=== PATIENT | female | born 1955 | race Caucasian/White ===

== ENCOUNTER 2017-12-14 00:12 | Emergency (ER) | payer OTHER ==
[~2017-12-14] VITALS: Ht 160 cm; Wt 97.5 kg
[2017-12-14 01:21] LABS: APPEARANCE CLEAR ((CLEAR)); BILIRUBIN NEGATIVE; BLOOD SMALL; COLOR YELLOW ((YELLOW)); GLUCOSE (STRIP) NEGATIVE; KETONES NEGATIVE; LEUKOCYTES NEGATIVE; NITRITE NEGATIVE; PROTEIN (STRIP) NEGATIVE; SPECIFIC GRAVITY 1.012 (1.000-1.030); UROBILINOGEN 0.2 MG/DL (0.2-1.0)
[2017-12-14 01:24] LABS: BACTERIA RARE /HPF; EPITHELIAL CELLS RARE /HPF; MUCUS TRACE /LPF; UCUL ADDED? NO; WHITE BLOOD CELLS 0-5 /HPF (0-5)
[2017-12-14 01:27] LABS: BASOPHIL (%) 0.3 % (0-1); EOSINOPHIL (%) 1.9 % (0-5); EOSINOPHIL COUNT 0.2 K/uL (0-0.3); HEMATOCRIT 37.1 % (36.0-46.0); HEMOGLOBIN 12.9 G/DL (11.9-15.5); IMMATURE GRANULOCYTE (%) 0.2 % (0.0-0.7); LYMPHOCYTE (%) 18.1 % (15-42); LYMPHOCYTE COUNT 1.6 K/uL (1.0-2.8); MCH 32.5 PG (29.0-34.0); MCHC 34.8 G/DL (30.0-36.0); MCV 93.5 FL (83-99); MONOCYTE COUNT 0.7 K/uL (0-0.8); NEUTROPHIL (%) 71.5 % (45-76); NEUTROPHIL COUNT 6.2 K/uL (1.8-6.4); PLATELET COUNT 192 K/uL (156-360); RBC DIS.WIDTH-CV 12.4 % (11.8-14.6); RBC DIS.WIDTH-SD 42.4 % (39-53); RED BLOOD COUNT 3.97 M/uL (3.80-5.20); WHITE BLOOD COUNT 8.6 K/uL (4.1-10.2)
[2017-12-14 01:35] LABS: ALBUMIN 4.1 g/dL (3.2-4.8)
[2017-12-14 01:36] LABS: CHLORIDE 108 mEq/L (99-109); POTASSIUM 3.7 mEq/L (3.7-5.4); SODIUM 142 mEq/L (136-147)
[2017-12-14 01:38] LABS: GLUCOSE 100 mg/dL (70-99); TOTAL PROTEIN 7.5 g/dL (6.4-8.3)
[2017-12-14 01:40] LABS: TOTAL BILIRUBIN 0.6 mg/dL (0.0-1.0)
[2017-12-14 01:41] LABS: ALKALINE PHOSPHATASE 57 IU/L (3-129)
[2017-12-14 01:42] LABS: CREATININE 0.8 mg/dL (0.6-1.3)
[2017-12-14 01:43] LABS: AST (GOT) 15 IU/L (2-34); DIRECT BILIRUBIN 0.2 mg/dL (0.0-0.3); UREA NITROGEN (BUN) 9 mg/dL (9-23)
[2017-12-14 01:45] LABS: ALT (GPT) 15 IU/L (3-49); LIPASE 31 U/L (1.0-51.0)
[2017-12-14 01:47] LABS: GFR ESTIMATE (CALCULATED) > 59 mL/min/
[2017-12-14] MEDS ORDERED: NORCO 5/3251 TABLET PO (03:45)
[2017-12-14] MEDS ORDERED: PYRIDIUM100 MG PO (03:59)
[2017-12-14 04:01] VITALS: BP 158/88
== END 2017-12-14 04:02 | disposition home or self-care (01) ==
LOC: EME 00:12
PROVIDERS: Emergency Medicine
DX: R10.30 Lower abdominal pain, unspecified (principal); R31.9 Hematuria, unspecified; N32.9 Bladder disorder, unspecified; K83.9 Disease of biliary tract, unspecified; R93.8 Abnormal findings on diagnostic imaging of other specified body structures; Z87.440 Personal history of urinary (tract) infections; Z86.19 Personal history of other infectious and parasitic diseases; Z87.19 Personal history of other diseases of the digestive system; Z87.448 Personal history of other diseases of urinary system; Z98.890 Other specified postprocedural states
CPT/HCPCS: 74177; 80048; 80076; 81003; 83605; 83690; 85025; 87040; J3010; J7030